=== PATIENT | female | born 1985 | race Caucasian/White ===

== ENCOUNTER 2024-10-04 19:51 | Emergency (ER) | payer OTHER, SELFPAY ==
[2024-10-04 20:04] VITALS: BP 160/100; PULSE 70; O2SAT 100
[2024-10-04 20:40] VITALS: BP 132/84; PULSE 73; RESP 18; TEMP 36.8; O2SAT 99; BMI 31.2
--- NOTE | 2024-10-04 20:47 | ED_ITS ---
HPI - General Adult General Chief complaint: General Medical Stated complaint: flu like symptoms, pt not speaking at all? Related Data Allergies Allergy/AdvReac Type Severity Reaction Status Date / Time No Known Allergies Allergy Unverified 10/04/24 20:43 [facility] Social History Social History Advance Directives: No Advance Directives Information Provided: No Physical Exam ED Vital Signs: Vital Signs - 24 hr 10/04/24 20:40 Temperature 98.2 F Pulse Rate 73 Respiratory Rate 18 Blood Pressure 132/84 Pulse Oximetry 99 Oxygen Delivery Method Room Air BMI result Body Mass Index 31.2 Course Course Course Narrative: This is an RME: Additional HPI, ROS, PE not included below will be deferred to primary provider. RME assessment and note performed by: Perla Shepard PA-C This is a 39-year-old female who presents emergency department with complaints of vomiting, diaphoresis, generalized weakness, decreased p.o. intake, headaches, congestion, unable to keep anything down. Reporting abdominal pain, and left ear pain. States that she had COVID 3 weeks ago however states that she recovered from this. Plan: Labs, EKG, viral swabs, further ER evaluation Reevaluation(s) Reevaluation #1: Patient left without completing treatment. Discharge Plan Discharge Clinical Impression: Nausea & vomiting Patient Disposition: Left W/O Completing Treatment Discharge Date/Time: 10/04/24 22:31
== END 2024-10-04 22:31 | disposition left against medical advice (07) ==
PROVIDERS: Emergency Provider Emergency Medicine
DX: R11.2 Nausea with vomiting, unspecified (principal); R53.1 Weakness
CPT/HCPCS: 99281